=== PATIENT | female | born 1990 | race Caucasian/White ===

== ENCOUNTER 2019-12-26 06:21 | Observation (INO) | payer BC, OTHER ==
[2019-12-26] VITALS (14 sets, daily range): BP systolic 98–127; BP diastolic 68–83
[~2019-12-26] VITALS: Ht 180.3 cm; Wt 80.7 kg
--- NOTE | ~2019-12-26 | P ---
[facility] [place] [address] PROCEDURE REPORT Name: JELANI MARROQUIN Room #: 207-P [facility]..#: [id number] Admission: 12/26/19 Attend Phys: Thai Bahena MD Discharge: Date of : 89 Report #: [id number] THIS REPORT FOR: cc: CHARLIE - Family physician unknown FAM - Family physician unknown Thai Bahena MD ~ CC: CHARLIE Bahena PREOPERATIVE DIAGNOSIS: Supraventricular tachycardia. POSTOPERATIVE DIAGNOSIS: Typical atrioventricular autumn reentry tachycardia. HISTORY: The patient is a 29-year-old female with a history of palpitations since childhood, recently seen in the Emergency Room with SVT that terminated with adenosine. She also has a father who has a history of Ntabd-Emclyzvoi-Pzlmg who underwent a surgical ablation in 1984 and was found to have 2 accessory pathways treated via open heart surgery. She is here for EP study and SVT ablation. PROCEDURES PERFORMED: 1. SVT ablation, CPT code 70362. 2. EP with left atrial pacing and recording, CPT code 34189. 3. Program stimulation pacing after IV drug infusion, CPT code 67492. 4. Intracardiac echo, CPT code 91209. 5. 3D mapping, CPT code 10200. ANESTHESIA: The patient underwent MAC anesthesia with no anesthesia related complications. DESCRIPTION OF PROCEDURE: The patient underwent informed consent. We discussed the details of the procedure including the risks, which include but not limited to bleeding, vascular damage, stroke, AZ as well as damage to the united [place] conduction system requiring permanent pacemaker. She understood these risks and is willing to proceed. The patient was brought to EP laboratory in fasting and sedated state and prepped and draped in a sterile fashion. Next, I obtained access to the right and left femoral veins and I placed an 8 and 6-Austrian short sheath in the right femoral vein and 9-Austrian short sheath in the left femoral vein. Next, 3 quadripolar catheters were placed at the HRA, His and RV positions and the decapolar catheter placed in the coronary sinus was utilized for left atrial pacing and recording. An ice catheter was placed into the right atrium for anatomic visualization. At baseline, the patient was in sinus rhythm with sinus cycle length of 690 milliseconds, AZ interval 175 milliseconds, QRS duration 90 milliseconds, QT [facility] [address] [place] [address] PROCEDURE REPORT Name: JELANI MARROQUIN Room #: 207-P [facility] M.R.#: [id number] Admission: 12/26/19 Attend Phys: Thai Bahena MD Discharge: Date of : 89 Report #: [id number] interval 360 milliseconds, AH interval 115 milliseconds and HV interval of 40 milliseconds. There was no evidence of manifest preexcitation with atrial pacing. With ventricular pacing, VA conduction was both midline and decremental. Atrial burst pacing was performed and AV block was noted at 380 milliseconds. Atrial ERP was noted at 300 milliseconds at [address] cycle length. Ventricular pacing was performed and VA block was noted at 410 milliseconds. There was evidence of fast pathway retrograde block at 460 milliseconds. Next, ventricular extrastimuli were performed and VERP was noted at 240 milliseconds at a [address] cycle length. VA conduction was both midline and decremental. While pacing the ventricle and monitoring retrograde conduction, I gave IV adenosine at 6 mg and this showed that there was no evidence of an accessory pathway. There was a complete loss of VA conduction with adenosine. Next, isoproterenol infusion was initiated at 2 mcg per minute. AV block was noted to be less than 240 milliseconds. Atrial ERP was noted at 240 milliseconds at a [address] cycle length. Ventricular pacing was performed and VA block was noted to be less than 240 milliseconds via the node. Ventricular ERP was noted at 190 milliseconds at a [address] cycle length. VA conduction remained midline and decremental. With atrial burst pacing, the patient went into SVT with a cycle length of 250 milliseconds, a septal VA time of 35 milliseconds and ventricular entrainment was performed consistent with typical AV autumn reentrant tachycardia. With double atrial extrastimuli, I again induced SVT initially with a right bundle-branch block aberration and then it narrowed back down and this was consistent with AVNRT as well. This was also entrained with a VAHV response. I induced SVT 2 further times and interestingly, I induced 2:1 AV autumn reentrant tachycardia twice. As such, a diagnosis of typical AV autumn reentry tachycardia was made As such we prepped for ablation. 3D MAPPING AND ABLATION: Next, using intracardiac ultrasound and 3D mapping, I created a detailed 3D geometry of the His bundle the slow pathway region and the coronary sinus ostium. Ablation was performed using a 4-mm Biosense Delarosa ablation catheter via an SR0 sheath. I performed a total of 7 ablation lesions, the last 3 lesions had a nice junctionals at around 100 beats per minute. There was never any compromise to AV autumn conduction. As such, post-ablation testing was performed. Post-ablation, a repeat EP study was performed and the patient was started back on isoproterenol, AV block remained less than 240 milliseconds, atrial ERP was 200 milliseconds at [address] cycle length. I tested on isoproterenol for about 30 minutes and I could no longer induce AV autumn reentrant tachycardia. Of note, she did have some irregular arrhythmia lasting about 10-20 beats that looked like atrial tachycardia arising from high right atrium, but these were nonsustained and likely of no clinical significance. Isoproterenol infusion was turned off and aggressive atrial and ventricular pacing maneuvers were performed. AV block was noted at 390 milliseconds. Atrial ERP was 290 milliseconds at a [address] cycle length[address] [facility] [address] [place] [address] PROCEDURE REPORT Name: JELANI MARROQUIN Room #: 207-P [facility]#: [id number] Admission: 12/26/19 Attend Phys: Thai Bahena MD Discharge: Date of : 89 Report #: [id number] Post-ablation, the patient was in sinus rhythm with sinus cycle length of 675 milliseconds, AZ interval 175 milliseconds, QRS duration 80 milliseconds, QT interval 360 milliseconds. As such, all catheters and sheaths were pulled. Hemostasis was obtained and the patient awoke neurologically and hemodynamically intact. CONCLUSIONS: 1. Successful ablation of typical atrioventricular autumn reentrant tachycardia. 2. Normal SA autumn function. 3. Normal His-Purkinje function. 4. No evidence of accessory pathway. 5. No other inducible arrhythmias on or off isoproterenol. By: [id number] Thai Bahena MD /nt
--- NOTE | ~2019-12-26 | D ---
[facility] [place] [address] DISCHARGE SUMMARY Name: JELANI MARROQUIN Room #: 207-P [facility] M..#: [id number] Admission: 12/26/19 Attend Phys: Thai Bahena MD Discharge: Date of : 89 Report #: [id number] THIS REPORT FOR: cc: CHARLIE - Family physician unknown FAM - Family physician unknown Thai Bahena MD ~ THIS REPORT FOR: //name// CC: CHARLIE unknown Thai Bahena DIAGNOSIS: AV autumn reentrant tachycardia. PROCEDURES PERFORMED: SVT ablation. HISTORY: The patient is a 29-year-old female who has had SVT since she was a child, also has a father who has WPW, who recently was in the Emergency Room with SVT that was terminated with adenosine. She is here for EP study and ablation. She was found to have easily inducible typical AV autumn reentrant tachycardia. She also had 2:1 AV autumn reentrant tachycardia. She had no evidence of accessory pathway nor any accessory pathway mediated tachycardia. She underwent successful ablation. HOSPITAL COURSE: The patient was monitored in the CCU overnight and did well. On the day of discharge, she denied any fevers or chills. She denies any chest pain, shortness of breath, PND or orthopnea. She denied any groin discomfort. PHYSICAL EXAMINATION: HEART: Regular rate and rhythm. No murmurs, rubs or gallops. LUNGS: Clear to auscultation bilaterally. ABDOMEN: Soft, nontender. EXTREMITIES: Groins, no significant bruising or hematoma. On telemetry she remained in sinus rhythm throughout the night. As such, she was deemed stable for discharge home. She will discontinue her beta carolyn and she will take aspirin 81 mg a day for 1 week. She will follow up with me in 3 months. By: [id number] Thai Bahena MD /nt
[2019-12-26] MEDS ORDERED: TOPROL XL50 MG PO (07:21)
[2019-12-26 07:26] LABS: ABSOLUTE NEUTROPHILS 2.2 thou/uL (1.4-8.2); BASOPHILS 0.5 % (0.0-2.0); EOSINOPHILS 0.7 % (0.0-3.0); HEMATOCRIT 35.9 % (37.0-47.0); HEMOGLOBIN 11.7 gm/dL (12.0-15.0); LYMPHOCYTES 38.7 % (24.0-44.0); MCH 25.8 pg (26.0-34.0); MCHC 32.4 g/dL (28.0-37.0); MCV 79.7 fL (80.0-100.0); MONOCYTES 8.9 % (1.0-8.0); PLATELET COUNT 128 thou/uL (150-400); POLYS 51.2 % (36.0-66.0); RBC 4.51 mil/uL (4.20-5.00); RDW 14.3 % (10.5-14.5); WBC 4.3 thou/uL (4.0-11.0)
[2019-12-26 07:35] LABS: PROTIME 10.7 Seconds (9.3-11.4)
[2019-12-26 07:36] LABS: CALCIUM 8.7 mg/dL (8.5-10.1); CREATININE 0.8 mg/dL (0.6-1.0); POTASSIUM 3.7 mmol/L (3.5-5.1)
--- NOTE | 2019-12-26 17:11 | NUR ---
PT CARE ASSUMED APPROX 1230. ASSESSMENT CHARTED. PT INITIALLY C/O HEADACHE AND N/V. NEW ORDERS RECEIVED TO TREAT. ONCE MEDICATED PT REPORTED COMPELTE RELIEF. POST PROCEDURE VSS. BILATERAL GROIN SITES C/D/I WITHOUT HEMATOMA. ONCE BEDREST COMPLETED GAIT WAS ASSESSED. PT UP WITH STEADY GAIT. URINARY CATH REMOVED WITHOUT ISSUES. PT HAS YET TO VOID. PUSHING FLUIDS. PT AWARE TO CALL POST VOID. FAMILY AT BEDSIDE. ALL DENY QUESTIONS AND CONCERNS REGARDING POC. NO DISTRESS NOTED.
[2019-12-27 00:27] VITALS: BP 86/53
[2019-12-27 04:20] VITALS: BP 101/66
[2019-12-27 07:57] VITALS: BP 101/66
[2019-12-27 07:59] VITALS: BP 101/66
--- NOTE | 2019-12-27 08:13 | NUR ---
PT CARE ASSUMED APPROX 0700. ASSESSMENT CHARTED. PT DENIES PAIN AND SOA. VSS. BILATERAL GROIN SITES C/D/I. PT APPROVED FOR DISCHARGE THIS MORNING. DISCHARGE EDUCATION AND PAPERWORK REVIEWED WITH PT AND SPOUSE. BOTH DENY QUESTIONS AND CONCERNS REGARDING POST HOSPITAL CARES AND FOLLOW UP. IV OUT, TELE BOX OFF. PT EXITED OUT WITH SPOUSE
== END 2019-12-27 08:16 | disposition home or self-care (01) ==
LOC: CATH 06:21 → 2N 12:18 → CATH 15:46 → 2N 12-27 08:16
PROVIDERS: ADMIT Internal Medicine Cardiovascular Disease
DX: I47.1 Supraventricular tachycardia (principal)
CPT/HCPCS: 62110; 62900; 70005